=== PATIENT | male | born 1970 | race Caucasian/White ===

== ENCOUNTER 2019-01-04 18:30 | Emergency (ER) | payer OTHER ==
[~2019-01-04] VITALS: Ht 175.3 cm; Wt 83.9 kg
[~2019-01-04 18:30] MED LIST: ACETAMINOPHEN325 M1 PO; APAP500 PO; BENZTROPINE MESY2 MG PO; DEPAKOTE ER250 MG PO; DEPAKOTE ER500 MG PO; DETROL LA4 MG PO; GLUMETZA500 PO; HALOPERIDOL 5 MG5 MG PO; HYDROCHLOROTH12.5 MG PO; K-DUR 20 MEQ T20 MEQ PO; PRINIVIL20 MG PO; PROPRANOLOL 20M20 MG PO; REQUIP 0.25 M0.25 MG PO; RISPERDAL4 M1 PO; TOPIRAGEN200 MG PO; ZESTRIL20 MG PO
[2019-01-04] MEDS ORDERED: RISPERDAL37.5 MG/2 IM (18:55)
[2019-01-04] MEDS ORDERED: ATIVAN1 MG PO (18:56)
[2019-01-04] MEDS ORDERED: TEARS AGAIN15 ML OPHTHALMIC (18:57)
[2019-01-04] MEDS ORDERED: OXYBUTYNIN 5 MG5 M2 PO (18:58)
[2019-01-04] MEDS ORDERED: NORVASC5 MG PO (18:59)
[2019-01-04] MEDS ORDERED: COZAAR 25 MG TA25 M2 PO (18:59)
[2019-01-04 21:02] VITALS: BP 180/114
== END 2019-01-04 22:13 ==
LOC: ER 18:30
DX: S01.01XA Laceration without foreign body of scalp, initial encounter (principal); M25.511 Pain in right shoulder; M25.512 Pain in left shoulder; I10 Essential (primary) hypertension; E11.9 Type 2 diabetes mellitus without complications; Z79.899 Other long term (current) drug therapy; W01.198A Fall on same level from slipping, tripping and stumbling with subsequent striking against other object, initial encounter; Y93.89 Activity, other specified; Y92.89 Other specified places as the place of occurrence of the external cause; Y99.9 Unspecified external cause status

== ENCOUNTER 2021-06-21 11:34 | Inpatient (IN) | payer OTHER ==
[~2021-06-21] VITALS: Ht 175.3 cm; Wt 77.1 kg
--- NOTE | ~2021-06-21 | EMS ---
[facility] [address] [place] [address] EMS Patient Care Report Name: JAEL BOYCE Room #: 170-15 DIS IN M.R.#: [id number] Admission: 06/21/21 Attend Phys: Lambert Noland Discharge: 06/23/21 Date of : 66 Report #: [id number] THIS REPORT FOR: //name// Report Transmitted: 06/25/2021 09:46 EMS Care Summary [place], [place]/[facility] Incident [id number] @ 06/21/2021 11:08 Incident Location [id number] [place] [address] 314 Patient JAEL BOYCE Male, 50 Years 1970 Patient Address [address] [place] [address] Patient History Schizophrenia,Paranoid Schizophrenia, Chief Complaint AMS Disposition Transported Lights/[place] Dispatch Reason Sick Person Transported To [facility] Narrative RESPONDED TO SICK AT [facility]. UPON ARRIVAL PT FOUND LAYING SUPINE ON BED NOT ALERT OR ORIENTED TO BASELINE. LARGE POOL OF VOMIT NOTED ON FLOOR. PT ONLY WITHDREW TO STERNAL RUB AND NOT VOCAL OR EYE TRACKING.[place] STAFF REPORT PT WAS LAST SEEN NORMAL YESTERDAY AND NORMALLY TALKS. EMS OBTAINED VITALS AND PLACED PT ON NRB. PT ROLLED ONTO ROSE COMPLETIONS ENGINEER AND TEAM LIFTED TO COT WITH SEATBELTS APPLIED. EN ROUTE IV AND 3 LEAD OBTAINED. PT TRANSPORTED EMERGENCY WITH 1 FF TO [facility]. PT TEAM LIFTED TO BED AND HANDRAILS UP. REPORT GIVEN TO NURSE. [facility] [address] [place] [address] EMS Patient Care Report Name: JAEL BOYCE Room #: 170-15 DIS IN M.R.#: [id number] Admission: 06/21/21 Attend Phys: Lambert Noland Discharge: 06/23/21 Date of : 66 Report #: [id number] Initial Vitals @11:20P: 69,CO: 3,SpO2: 99, @11:30P: 71, @11:27P: 76,BP: 182/114,CO: 2,SpO2: 100, @11:31P: 70,R: 14,BP: 193/108,SpO2: 100, @11:20P: 73,R: 14,BP: 170/113,GCS: 6,Glucose: 111,SpO2: 98,Revised Trauma: 10, Assessments @11:20MENTAL:Unresponsive,Other,SKIN:Pale,HEENT:Eyes: Right Pupil: 5-mm,Neck/Airway: Other,Eyes: Left Pupil: 5-mm,LUNG SOUNDS:General: Vomiting,Left Upper: No Abnormalities,Right Upper: No Abnormalities,Left Lower: No Abnormalities,Right Lower: No Abnormalities,ABDOMEN:General: Vomiting,Left Upper: No Abnormalities,Right Upper: No Abnormalities,Left Lower: No Abnormalities,Right Lower: No Abnormalities,PELVIS//GI:Incontinence,EXTREMITIES:Left Arm: Weakness,Right Arm: Weakness,Left Leg: Weakness,Right Leg: Weakness,PULSE:Radial: 2+ Normal,NEURO:Other, Impression Altered Mental Status Procedures @11:20 ALS Assessment Response: UnchangedSucceeded @11:25 IV Therapy - Saline Lock 5cc (20 ga) Site: Antecubital-Left Response: UnchangedSucceeded @11:26 3-Lead ECG Response: UnchangedSucceeded @11:21 Oxygen FlowRate: 15 Device: Non Re-breather Mask (NRB) Response: UnchangedSucceeded Timeline 11:05,Call Received 11:05,Dispatch Notified 11:08,Dispatched 11:10,En Route 11:15,On Scene 11:20,At Patient 11:20,BP: / M,PULSE: 69,RR: R,SPO2: 99 Ox,ETCO2: ,BG: ,PAIN: ,GCS: , 11:20,BP: 170/113 M,PULSE: 73,RR: 14 R,SPO2: 98 Ox,ETCO2: ,B,PAIN: ,GCS: 6, 11:20,ALS Assessment,Response: UnchangedSucceeded, 11:21,Oxygen FlowRate: 15 Device: Non Re-breather Mask (NRB) Response: UnchangedSucceeded, 11:25,IV Therapy - Saline Lock 5cc 20 ga Site: Antecubital-Left,Response: UnchangedSucceeded, 11:26,3-Lead ECG,Response: UnchangedSucceeded, [address] [address] EMS Patient Care Report Name: JAEL BOYCE Room #: 170-15 [facility] IN M.R.#: [id number] Admission: 06/21/21 Attend Phys: Lambert Noland Discharge: 06/23/21 Date of : 66 Report #: [id number] 11:27,Depart Scene 11:27,BP: 182/114 M,PULSE: 76,RR: R,SPO2: 100 Ox,ETCO2: ,BG: ,PAIN: ,GCS: , 11:30,BP: / M,PULSE: 71,RR: R,SPO2: Ox,ETCO2: ,BG: ,PAIN: ,GCS: , 11:31,BP: 193/108 M,PULSE: 70,RR: 14 R,SPO2: 100 Ox,ETCO2: ,BG: ,PAIN: ,GCS: , 11:32,At Destination 11:47,Call Closed Disclaimer v1.1 Copyright 2021 [employer] This EMS Care Summary contains data elements from the applicable legal record (which may be displayed differently). It is designed to provide pertinent information for the following purposes: continuity of care, clinical quality, and state data reporting. The complete legal record is available to ED staff and administrators of the receiving hospital in [employer] Patient Tracker. All data is provided "as is."
[~2021-06-21 11:34] MED LIST changes: +ATIVAN1 MG PO; +COZAAR 25 MG TA25 M2 PO; +NORVASC5 MG PO; +OXYBUTYNIN 5 MG5 M2 PO; +RISPERDAL37.5 MG/2 IM; +TEARS AGAIN15 ML OPHTHALMIC
[2021-06-21 11:57] LABS: ABSOLUTE NEUTROPHILS 8.4 thou/uL (1.4-8.2); BASOPHILS 0.4 % (0.0-2.0); EOSINOPHILS 1.3 % (0.0-3.0); HEMATOCRIT 36.3 % (42.0-52.0); HEMOGLOBIN 12.5 gm/dL (14.0-18.0); LYMPHOCYTES 10.5 % (24.0-44.0); MCH 29.6 pg (26.0-34.0); MCHC 34.4 g/dL (28.0-37.0); MCV 86.1 fL (80.0-100.0); MONOCYTES 6.5 % (1.0-8.0); PLATELET COUNT 204 thou/uL (150-400); POLYS 81.3 % (36.0-66.0); RBC 4.21 mil/uL (4.50-6.00); RDW 13.7 % (10.5-14.5); WBC 10.3 thou/uL (4.0-11.0)
[2021-06-21 11:59] LABS: BE(vivo) -4.1 mmol/L (-2 to +3); HCO3 20.1 mmol/L (22.0-26.0); PCO2 34.2 mmHg (35.0-45.0); PO2 101.6 mmHg (80.0-100.0); pH 7.388 (7.360-7.450); sO2 97.6 % (92.0-98.0)
[2021-06-21 12:19] LABS: ALBUMIN 3.9 g/dL (3.4-5.0); CREATININE 0.4 mg/dL (0.7-1.3); MAGNESIUM 1.3 mg/dL (1.8-2.4); POTASSIUM 3.3 mmol/L (3.5-5.1); TOTAL BILIRUBIN 0.5 mg/dL (0.2-1.0); TOTAL PROTEIN 6.7 g/dL (6.4-8.2)
[2021-06-21 14:48] LABS: URINE BILIRUBIN NEGATIVE (Negative); URINE BLOOD NEGATIVE (Negative); URINE CLARITY SL CLOUDY; URINE COLOR YELLOW; URINE GLUCOSE-RANDOM* NEGATIVE (Negative); URINE KETONES TRACE (Negative); URINE LEUKOCYTES-REFLEX NEGATIVE (Negative); URINE NITRITE-REFLEX NEGATIVE (Negative); URINE PROTEIN (DIPSTICK) NEGATIVE (Negative); URINE SPECIFIC GRAVITY 1.015 (1.005-1.035); URINE UROBILINOGEN 0.2 E.U./dl (0.2-1.0)
[2021-06-21 14:55] LABS: AMP/METHAMP Negative (Negative); BARBITURATES Negative (Negative); BENZODIAZEPINES Negative (Negative); COCAINE Negative (Negative); METHADONE Negative (Negative); OPIATES Negative (Negative); PCP Negative (Negative)
[2021-06-21] MEDS ORDERED: ASPIRIN325 PO (16:36)
[2021-06-21] MEDS ORDERED: DESMOPRESSIN A0.2 M2 PO (16:37)
[2021-06-21 20:00] VITALS: BP 151/110
[2021-06-22] VITALS: BP 144/108
[2021-06-22 04:00] VITALS: BP 158/88
[2021-06-22 06:12] LABS: HEMATOCRIT 36.2 % (42.0-52.0); HEMOGLOBIN 12.3 gm/dL (14.0-18.0); MCH 29.3 pg (26.0-34.0); MCV 86.3 fL (80.0-100.0); RBC 4.19 mil/uL (4.50-6.00); RDW 14.1 % (10.5-14.5); WBC 9.3 thou/uL (4.0-11.0)
[2021-06-22 06:32] LABS: ALBUMIN 3.5 g/dL (3.4-5.0); CREATININE 0.4 mg/dL (0.7-1.3); MAGNESIUM 1.7 mg/dL (1.8-2.4); POTASSIUM 3.4 mmol/L (3.5-5.1); TOTAL BILIRUBIN 0.5 mg/dL (0.2-1.0); TOTAL PROTEIN 6.1 g/dL (6.4-8.2)
[2021-06-22 08:15] VITALS: BP 167/101
[2021-06-22 12:30] VITALS: BP 140/97
[2021-06-22 17:05] VITALS: BP 130/88
[2021-06-23 00:09] VITALS: BP 122/85
[2021-06-23 04:29] VITALS: BP 130/79
--- NOTE | 2021-06-23 05:26 | NUR ---
PT CONFUSED BUT MOSTLY PLEASANT. HE IS OFTEN IMPULSIVE WHEN AWAKE BUT ABLE TO BE RE-DIRECTED. NO C/O PAIN. AFEBRILE. VSS. GOOD PO INTAKE AND URINE OUTPUT. PT ONLY SLEPT A FEW HOURS DURING THE NIGHT. FALL PRECAUTIONS IN PLACE. WILL MONITOR FURTHER.
--- NOTE | 2021-06-23 07:37 | EKG ---
[place] [address] [id number] [place] [address] ELECTROCARDIOGRAM REPORT Name: JAEL BOYCE Room #: 170-15 ADM IN M.R.#: [id number] Admission: 06/21/21 Attend Phys: Lambert Noland Discharge: Date of : 66 Report #: [id number] [facility] ED Test Date: 2021-06-21 Test Time: 12:14:06 Pat Name: JAEL BOYCE Department: Room: 170 Gender: M Assembler: christian : 1970 Requested By: Deborah Mars Order Number: [id number] MD: Cecil Rushing Measurements Intervals [place] Rate: 72 P: 76 MN: 217 QRS: 63 QRSD: 97 T: 72 QT: 411 QTc: 450 Interpretive Statements Sinus rhythm Prolonged MN interval ST elev, probable normal early repol pattern Baseline wander in lead(s) V4,V5 Compared to ECG 04/17/2013 11:24:42 First degree AV block now present ST (T wave) deviation now present Electronically Signed On 06-23-2021 7:37:33 THREAD TWISTER by Cecil Rushing [email or web address] <ELECTRONICALLY SIGNED> By: Cecil Rushing MD, [facility] 06/23/21 0737 1214 1214 Cecil Rushing MD, [facility] /EPI
[2021-06-23 08:00] VITALS: BP 121/94
[2021-06-23 11:42] LABS: CALCIUM 8.4 mg/dL (8.5-10.1); CREATININE 0.5 mg/dL (0.7-1.3)
[2021-06-23 12:00] VITALS: BP 125/85; BP 128/85
[2021-06-23 12:13] VITALS: BP 128/85
--- NOTE | 2021-06-23 12:15 | NUR ---
RN RECEIVED CALL FROM CASE MANAGEMENT THAT PT'S GUARDIAN NEEDS TO BE CONSENTED FOR TREATMENT OF PATIENT. RN SENT MESSAGE TO DR. ARIZA REQUESTING THIS WITH PT'S LEGAL GUARDIAN'S NAME AND TELEPHONE NUMBER, RINA CAUSEY [phone]
--- NOTE | 2021-06-23 15:03 | NUR ---
RN RECEIVED CALL FROM DASIA, WITH SOCIAL WORK. PT DISCHARGING BACK TO [facility]. ETA OF RIDE [phone]
--- NOTE | 2021-06-23 16:18 | NUR ---
1618: RN CALLED REPORT TO MARYSE NURSE AT [facility].
--- NOTE | 2021-06-23 17:08 | NUR ---
1630: PT DISCHARGED AT THIS TIME VIA WHEELCHAIR BACK TO HOME AT [facility]. CUSTOMS HOUSE BROKER PROVIDED WITH DISCHARGE INSTRUCTIONS TO GIVE TO NURSE AT FACILITY. NURSE PREVIOUSLY CALLED AND GIVEN REPORT BY THIS RN.
== END 2021-06-23 16:40 | DRG 640 ==
LOC: ER 11:34 → EROBS 13:43
PROVIDERS: Emergency Medicine; ADMIT Hospitalist; ATTEND Hospitalist
DX: E87.1 Hypo-osmolality and hyponatremia (principal); G93.41 Metabolic encephalopathy; E46 Unspecified protein-calorie malnutrition; I10 Essential (primary) hypertension; I16.0 Hypertensive urgency; E11.9 Type 2 diabetes mellitus without complications; E83.42 Hypomagnesemia; F17.210 Nicotine dependence, cigarettes, uncomplicated; F29 Unspecified psychosis not due to a substance or known physiological condition; R41.0 Disorientation, unspecified; T43.025A Adverse effect of tetracyclic antidepressants, initial encounter; Z20.822 Contact with and (suspected) exposure to COVID-19; Y92.89 Other specified places as the place of occurrence of the external cause; Z68.25 Body mass index [BMI] 25.0-25.9, adult

== ENCOUNTER 2021-06-25 21:38 | Inpatient (IN) | payer OTHER ==
[~2021-06-25] VITALS: Ht 175.3 cm; Wt 77.1 kg
--- NOTE | ~2021-06-25 | EMS ---
[address] [address] EMS Patient Care Report Name: JAEL BOYCE Room #: 170-6 ADM IN M.R.#: [id number] Admission: 06/26/21 Attend Phys: Gaston Garcia MD Discharge: Date of : 66 Report #: [id number] THIS REPORT FOR: //name// Report Transmitted: 06/27/2021 11:14 EMS Care Summary [place], [place]/[facility] Incident [id number] @ 06/25/2021 20:58 Incident Location [id number] [place] [address] Patient JAEL BOYCE Male, 50 Years 1970 Patient Address [address] [place] [address] Patient History Schizophrenia,Paranoid Schizophrenia, Patient Allergies No known allergies, Patient Medications Propranolol, Ropinirole, Lorazepam, Desmopressin (DDAVP), Aspirin, Potassium, Amlodipine, Risperdal, Benztropine, Oxybutynin, Topiramate, Acetaminophen, Chief Complaint Altered Mental Status Disposition Transported No Lights/[place] Dispatch Reason Unconscious/Fainting Transported To [facility] Narrative Nurse at [facility] stated that Pt was found sitting in a wheelchair in hallway around 1900 hours and they could not wake Pt up to go to dinner and moved Pt back to his room. Nurse stated Pt was released from [facility] early today and they noticed when he had returned Pt was not alert as he [address] [place] [address] EMS Patient Care Report Name: JAEL BOYCE Room #: 170-6 ADM IN M.R.#: [id number] Admission: 06/26/21 Attend Phys: Gaston Garcia MD Discharge: Date of : 66 Report #: [id number] normally is and when Pt was found sitting in wheel chair and moved him to bed and waited to call 911 due to waiting for the Dr to return the Nurses call. Pt is a GCS 11 and not alert to answer questions. Pt laying in his bed half wain in /out with his feet on the floor in his room. Pt is a GCS 11 and would not follow commands or answer any questions when asked by EMS. Per Nurse Pt was released early today from [facility] for agitation and aggressive behavior and was lethargic when he returned to care center, and Nurse stated Pt had no changes in his Medication on return. Pt is with no signs of injury and no signs of ETOH use or drug use on further eval by EMS. Pt is with no other complaints noted and transported to [facility] and received by RN in ER. Initial Vitals @21:11P: 67,R: 20,BP: 103/67,Pain: 0/10,GCS: 11,Glucose: 118,SpO2: 98,Revised Trauma: 11, @21:15P: 71,R: 20,BP: 105/69,Pain: 0/10,GCS: 11,SpO2: 98,Revised Trauma: 11, Assessments @21:05MENTAL:Confused,SKIN:Pale,HEENT:Eyes: Left: Constricted,Eyes: Left Pupil: 3-mm,Eyes: Right Pupil: 5-mm,Eyes: Right: Other,Head/Face: No Abnormalities,Neck/Airway: No Abnormalities,LUNG SOUNDS:General: No Abnormalities,ABDOMEN:General: No Abnormalities,PELVIS//GI:No Abnormalities,EXTREMITIES:Capillary Refill: Left Upper: < 2 Sec,Left Arm: No Abnormalities,Right Arm: No Abnormalities,Left Leg: No Abnormalities,Right Leg: No Abnormalities,PULSE:Radial: 2+ Normal,NEURO:No Abnormalities,@21:23MENTAL:Confused,SKIN:Pale,HEENT:Eyes: Left: Constricted,Eyes: Left Pupil: 3-mm,Eyes: Right Pupil: 5-mm,Eyes: Right: Other,Head/Face: No Abnormalities,Neck/Airway: No Abnormalities,LUNG SOUNDS:General: No Abnormalities,ABDOMEN:General: No Abnormalities,PELVIS//GI:No Abnormalities,EXTREMITIES:Capillary Refill: Right Upper: < 2 Sec,Left Arm: No Abnormalities,Right Arm: No Abnormalities,Left Leg: No Abnormalities,Right Leg: No Abnormalities,PULSE:Radial: 2+ Normal,NEURO:No Abnormalities, Impression Altered Mental Status Procedures @21:05 ALS Assessment Response: UnchangedSucceeded @21:08 Oxygen FlowRate: 4 Device: OxyMask Response: UnchangedSucceeded @21:11 3-Lead ECG Response: UnchangedSucceeded @21:14 IV Therapy - Saline Lock 0cc (18 ga) Site: Antecubital-Left Response: UnchangedSucceeded [address] [address] EMS Patient Care Report Name: JAEL BOYCE Room #: 170-6 ADM IN M.R.#: [id number] Admission: 06/26/21 Attend Phys: Gaston Garcia MD Discharge: Date of : 66 Report #: [id number] Timeline 20:55,Call Received 20:55,Dispatch Notified 20:58,Dispatched 20:59,En Route 21:02,On Scene 21:05,At Patient 21:05,ALS Assessment,Response: UnchangedSucceeded, 21:08,Oxygen FlowRate: 4 Device: OxyMask Response: UnchangedSucceeded, 21:11,3-Lead ECG,Response: UnchangedSucceeded, 21:11,BP: 103/67 M,PULSE: 67,RR: 20 R,SPO2: 98 Ox,ETCO2: ,B,PAIN: 0,GCS: 11, 21:14,IV Therapy - Saline Lock 0cc 18 ga Site: Antecubital-Left,Response: UnchangedSucceeded, 21:15,BP: 105/69 M,PULSE: 71,RR: 20 R,SPO2: 98 Ox,ETCO2: ,BG: ,PAIN: 0,GCS: 11, 21:25,Depart Scene 21:33,At Destination 21:48,Call Closed Disclaimer v1.1 Copyright 2021 [employer] This EMS Care Summary contains data elements from the applicable legal record (which may be displayed differently). It is designed to provide pertinent information for the following purposes: continuity of care, clinical quality, and state data reporting. The complete legal record is available to ED staff and administrators of the receiving hospital in [employer]'s Patient Tracker. All data is provided "as is."
[~2021-06-25 21:38] MED LIST changes: +ASPIRIN325 PO; +DESMOPRESSIN A0.2 M2 PO
[2021-06-25 21:39] VITALS: BP 109/72
[2021-06-25 21:57] LABS: HEMATOCRIT 37.5 % (42.0-52.0); HEMOGLOBIN 12.7 gm/dL (14.0-18.0); MCH 29.3 pg (26.0-34.0); PLATELET COUNT 231 thou/uL (150-400); RBC 4.36 mil/uL (4.50-6.00); RDW 14.5 % (10.5-14.5); WBC 9.5 thou/uL (4.0-11.0)
[2021-06-25 22:19] LABS: ANION GAP 10 mmol/L (7-16); BUN 13 mg/dL (7-18); CALCIUM 8.8 mg/dL (8.5-10.1); CHLORIDE 86 mmol/L (98-107); CO2 19 mmol/L (21-32); CREATININE 1.1 mg/dL (0.7-1.3); GLUCOSE 117 mg/dL (74-106); LIPASE 91 U/L (73-393); POTASSIUM 3.4 mmol/L (3.5-5.1); SALICYLATE < 2.8 mg/dL (2.8-20.0)
[2021-06-25 22:23] LABS: SODIUM 115 mmol/L (136-145)
[2021-06-25 23:14] LABS: URINE BILIRUBIN NEGATIVE (Negative); URINE BLOOD NEGATIVE (Negative); URINE CLARITY SL CLOUDY; URINE COLOR YELLOW; URINE GLUCOSE-RANDOM* NEGATIVE (Negative); URINE KETONES NEGATIVE (Negative); URINE LEUKOCYTES-REFLEX NEGATIVE (Negative); URINE NITRITE-REFLEX NEGATIVE (Negative); URINE PROTEIN (DIPSTICK) NEGATIVE (Negative)
[2021-06-25 23:24] LABS: ABSOLUTE NEUTROPHILS 8.4 thou/uL (1.4-8.2)
[2021-06-25 23:24] LABS: AMP/METHAMP Negative (Negative); BARBITURATES Negative (Negative); BENZODIAZEPINES Negative (Negative); COCAINE Negative (Negative); METHADONE Negative (Negative); OPIATES Negative (Negative); PCP Negative (Negative)
[2021-06-25 23:25] LABS: ANISOCYTOSIS 1+; BURR CELLS 1+; LARGE PLATELETS FEW; PLATELET ESTIMATE NORMAL; POIKILOCYTOSIS 1+
[2021-06-26 06:48] LABS: HEMATOCRIT 37.1 % (42.0-52.0); HEMOGLOBIN 12.2 gm/dL (14.0-18.0); MCH 29.3 pg (26.0-34.0); MCHC 32.8 g/dL (28.0-37.0); MCV 89.4 fL (80.0-100.0); RBC 4.15 mil/uL (4.50-6.00); RDW 14.3 % (10.5-14.5); WBC 10.3 thou/uL (4.0-11.0)
[2021-06-26 08:00] LABS: URINE CREATININE-RANDOM* 89.2 mg/dL
--- NOTE | 2021-06-26 08:44 | EKG ---
[place] [address] [facility] [place] [address] ELECTROCARDIOGRAM REPORT Name: JAEL BOYCE Room #: 170-6 ADM IN M.R.#: [id number] Admission: 06/26/21 Attend Phys: Gaston Garcia MD Discharge: Date of : 66 Report #: [id number] [facility] ED Test Date: 2021-06-25 Test Time: 22:02:01 Pat Name: JAEL BOYCE Department: Room: 170 Gender: M Digital Research Analyst: : 1970 Requested By: Gregorio Verma Order Number: [id number] MD: Cecil Rushing Measurements Intervals [place] Rate: 74 P: 74 PA: 221 QRS: 64 QRSD: 89 T: 86 QT: 404 QTc: 449 Interpretive Statements Sinus rhythm Atrial premature complexes Prolonged PA interval Abnormal R-wave progression, early transition Minimal ST elevation, inferior leads Compared to ECG 06/21/2021 12:14:06 Atrial premature complex(es) now present ST (T wave) deviation still present Electronically Signed On 06-26-2021 8:44:44 DIE PRESSER by Cecil Rushing [email or web address] <ELECTRONICALLY SIGNED> By: eCcil Rushing MD, FACC 06/26/21 0844 01 01 Cecil Rushing MD, FAC /EPI
--- NOTE | 2021-06-26 09:04 | NUR ---
Received patient report from TERESO Rosales. Assuming patient care at this time.
[2021-06-26 09:44] VITALS: BP 140/85
--- NOTE | 2021-06-26 13:57 | NUR ---
Pt assisted to bedside commode, had bowel movement. Pt moved from bed to commode with minimal assistance, steady gait. No complications
[2021-06-26 14:10] LABS: ALBUMIN 3.5 g/dL (3.4-5.0); CALCIUM 8.2 mg/dL (8.5-10.1); CREATININE 0.7 mg/dL (0.7-1.3); PHOSPHORUS 3.4 mg/dL (2.5-4.9); POTASSIUM 3.8 mmol/L (3.5-5.1)
--- NOTE | 2021-06-26 15:59 | NUR ---
PT ADMITTED RELATED TO HYPONATREMIA. CM REVIEWED CHART AND SPOKE WITH ARE TEAM. PT IS FAMILIAR TO CM FROM PREVIOUS ADMISSION. PT IS RESIDENT OF [facility]. PT HAD DISCHARGED BACK TO [facility] Wednesday06/23/20. CM HAD ARRANGED [facility] FOR [id number]. PT IS [facility] OFFICE LEGAL GUARDIAN IS RINA [facility] . CM SPOKE WITH HIM. HE HAD SPOKEN WITH STAFF HERE THIS AM AND HAD PROVIDED THEM CONSENT TO TREAT. PT IS COVID POSITIVE THIS ADMISSION IS ON ROOM AIR. NEPHROLOGY CONSULTED. PLAN WOULD BE FOR PT TO RETURN TO [facility] ONCE MEDICALLY STABLE. RINA INDICATED THAT PT MAY HAVE DISCHARGED BACK LAST TIME WITHOUT HIS SHOES. CM TO INQUIRE. CM FOLLOWING.
--- NOTE | 2021-06-26 18:54 | NUR ---
Pt pulled out IV, cardiac leads, bedding on floor. Pt cleaned up, bedding changed, new IV established. IV site wrapped for security.
--- NOTE | 2021-06-26 19:08 | NUR ---
Pt report given to TERESO Willingham
--- NOTE | 2021-06-26 19:50 | NUR ---
PT REMOVED CORDS AND DISCONNECTED IV FLUIDS AT THIS TIME. PT'S IV STILL IN PLACE AND IS PATENT. PT REORIENTED TO SITUATION AND ENCOURAGED TO USE CALL LIGHT IF ASSSISTANCE IS NEEDED IN THE FUTURE.
--- NOTE | 2021-06-26 20:15 | NUR ---
PT FOR A REPEATED TIME HAS RIPPED ALL OF HIS CORDS OFF AND HAS GOTTEN OUT OF BED IN ORDER TO GET WATER. PT EDUCATED ABOUT USING THE CALL LIGHT. PT STATES HE DIDN'T USE THE CALL LIGHT BECAUSE "I FORGOT".
[2021-06-27 04:10] LABS: HEMATOCRIT 37.4 % (42.0-52.0); HEMOGLOBIN 12.8 gm/dL (14.0-18.0); MCH 29.8 pg (26.0-34.0); MCHC 34.1 g/dL (28.0-37.0); MCV 87.5 fL (80.0-100.0); RBC 4.28 mil/uL (4.50-6.00); RDW 14.2 % (10.5-14.5)
[2021-06-27 09:22] VITALS: BP 181/96
[2021-06-27 09:25] LABS: ALBUMIN 3.6 g/dL (3.4-5.0); CALCIUM 8.4 mg/dL (8.5-10.1); CREATININE 0.6 mg/dL (0.7-1.3); PHOSPHORUS 2.8 mg/dL (2.6-4.7); POTASSIUM 3.9 mmol/L (3.5-5.1)
[2021-06-27 13:38] VITALS: BP 118/82
--- NOTE | 2021-06-27 14:24 | NUR ---
SPOKE WITH ANIKA FROM [facility] WHO STATES THEY WILL PICK PATIENT UP AROUND 3 TO TAKE HIM BACK TO THE FACILITY
--- NOTE | 2021-06-27 15:59 | NUR ---
CARE TEAM INDICATED THAT PT IS MEDICALLY STABLE TO DC BACK TO [facility] THIS DAY. CM SPOKE WITH BIANKA HANNA AND SHE IS AWARE AND AGREEABLE. THEY ARE ABLE TO ACCEPT HIM WITH HIS COVID POSITIVE STATUS. THEY INDICATED THAT [facility] PICKING PT UP AROUND 1800 WITH THEIR TRANSPORT. CM NOTIFIED UNIT. CHART COPY ORDERED. ORDERS FAXED. CM CALLED AND NOTIFIED PT'S GUARDIAN RINA CAUSEY AND HE IS AWARE AND AGREEABLE. NURSE GIVEN NUMBER FOR REPORT. NO OTHER CM INTERVENTION INDICATED. CASE CLOSED.
--- NOTE | 2021-06-27 16:07 | NUR ---
[facility] CALLED BACK TO SAY THEY WOULD ARRIVE AT 1800
== END 2021-06-27 16:55 | DRG 640 ==
LOC: ER 21:38 → EROBS 06-26 01:11
PROVIDERS: Internal Medicine Nephrology; Nurse Practitioner Family; Student in an Organized Health Care Education/Training Program; ADMIT Hospitalist; ATTEND Hospitalist
DX: E87.1 Hypo-osmolality and hyponatremia (principal); J96.01 Acute respiratory failure with hypoxia; U07.1 COVID-19; F20.0 Paranoid schizophrenia; G93.40 Encephalopathy, unspecified; E86.1 Hypovolemia; I10 Essential (primary) hypertension; E11.9 Type 2 diabetes mellitus without complications; F60.9 Personality disorder, unspecified; T50.905A Adverse effect of unspecified drugs, medicaments and biological substances, initial encounter; Y92.89 Other specified places as the place of occurrence of the external cause; Z86.16 Personal history of COVID-19

== ENCOUNTER 2021-07-26 21:35 | Inpatient (IN) | payer OTHER ==
[~2021-07-26] VITALS: Ht 175.3 cm; Wt 70.1 kg
--- NOTE | ~2021-07-26 | EMS ---
[address] [address] EMS Patient Care Report Name: JAEL BOYCE Room #: REG MIS Guevara#: [id number] Admission: 07/26/21 Attend Phys: Discharge: Date of : 66 Report #: [id number] THIS REPORT FOR: //name// Report Transmitted: 07/26/2021 22:12 EMS Care Summary [place], [place]/[facility] Incident [id number] @ 07/26/2021 21:05 Incident Location [address] [facility] Patient JAEL BOYCE Male, 50 Years 1970 Patient Address [address] [place], [place] [id number] Patient History Diabetes,Hypertension (HTN),Schizophrenia,Paranoid Schizophrenia, Patient Allergies No known allergies, Patient Medications Topiramate, Risperdal, Propranolol, Oxybutynin, Aspirin, Potassium, Acetaminophen, Desmopressin (DDAVP), Ropinirole, Amlodipine, Benztropine, Lorazepam, Chief Complaint altered LOC Disposition Transported No Lights/[place] Dispatch Reason Sick Person Transported To [facility] Narrative pt found seated on couch in [facility]. staff states pt normally is alert, confused, ambulatory. since yesterday he is unable to ambulate w/o assist and [address] [address] EMS Patient Care Report Name: JAEL BOYCE Room #: REG MIS Guevara#: [id number] Admission: 07/26/21 Attend Phys: Discharge: Date of : 66 Report #: [id number] has slurred, confused responses. they ordered lab work but does not want to wait to get results back. pt assist to cot, tx as listed in flow chart. transport w/o change. report to staff rm 10 Initial Vitals @21:16P: 75,R: 18,BP: 115/70,Pain: 0/10,GCS: 14,Glucose: 110,SpO2: 99,Revised Trauma: 12, Assessments @21:12MENTAL:Confused,Person Oriented,SKIN:No Abnormalities,HEENT:Head/Face: No Abnormalities,LUNG SOUNDS:ABDOMEN:PELVIS//GI:EXTREMITIES:PULSE:NEURO:Slurred Speech,Other, Impression Altered Mental Status Procedures @21:12 ALS Assessment Response: Unchanged @21:14 Stretcher Response: Unchanged @21:16 3-Lead ECG Response: Unchanged @21:20 IV Therapy - Saline Lock 10cc (20 ga) Site: Hand-Left Response: UnchangedSucceeded Timeline 21:03,Call Received 21:03,Dispatch Notified 21:05,Dispatched 21:05,En Route 21:11,On Scene 21:12,At Patient 21:12,ALS Assessment,Response: Unchanged 21:14,Stretcher,Response: Unchanged 21:16,3-Lead ECG,Response: Unchanged 21:16,BP: 115/70 M,PULSE: 75,RR: 18 R,SPO2: 99 Ox,ETCO2: ,B,PAIN: 0,GCS: 14, 21:20,IV Therapy - Saline Lock 10cc 20 ga Site: Hand-Left,Response: UnchangedSucceeded, 21:23,Depart Scene 21:30,At Destination 21:41,Call Closed Disclaimer v1.1 Copyright 2021 [employer] This EMS Care Summary contains data elements from the applicable legal record (which may be displayed differently). It is designed to provide pertinent [facility] [address] [place] [address] EMS Patient Care Report Name: JAEL BOYCE [id number] Admission: 07/26/21 Attend Phys: Discharge: Date of : 66 Report #: [id number] information for the following purposes: continuity of care, clinical quality, and state data reporting. The complete legal record is available to ED staff and administrators of the receiving hospital in [employer]'s Patient Tracker. All data is provided "as is."
[2021-07-26 21:36] VITALS: BP 115/74
[2021-07-26 23:00] LABS: HEMATOCRIT 29.5 % (42.0-52.0); HEMOGLOBIN 10.3 gm/dL (14.0-18.0); MCH 29.2 pg (26.0-34.0); MCHC 34.9 g/dL (28.0-37.0); MCV 83.8 fL (80.0-100.0); RBC 3.52 mil/uL (4.50-6.00); RDW 14.5 % (10.5-14.5); WBC 16.5 thou/uL (4.0-11.0)
[2021-07-26 23:09] LABS: ANION GAP 10 mmol/L (7-16); BUN 15 mg/dL (7-18); CALCIUM 8.6 mg/dL (8.5-10.1); CHLORIDE 89 mmol/L (98-107); CO2 20 mmol/L (21-32); CREATININE 0.5 mg/dL (0.7-1.3); GLUCOSE 99 mg/dL (74-106); POTASSIUM 4.1 mmol/L (3.5-5.1)
[2021-07-26 23:18] LABS: MAGNESIUM 1.7 mg/dL (1.8-2.4); PHOSPHORUS 2.5 mg/dL (2.6-4.7); SALICYLATE < 2.8 mg/dL (2.8-20.0); SGOT 44 U/L (15-37); SGPT 44 U/L (16-63); TOTAL BILIRUBIN 0.5 mg/dL (0.2-1.0); TOTAL PROTEIN 5.6 g/dL (6.4-8.2)
[2021-07-26 23:25] LABS: SODIUM 119 mmol/L (136-145)
[2021-07-26 23:53] LABS: URINE BILIRUBIN NEGATIVE (Negative); URINE BLOOD 1+ (Negative); URINE CLARITY CLOUDY; URINE COLOR YELLOW; URINE GLUCOSE-RANDOM* NEGATIVE (Negative); URINE KETONES NEGATIVE (Negative); URINE NITRITE-REFLEX NEGATIVE (Negative); URINE PROTEIN (DIPSTICK) TRACE (Negative)
[2021-07-26 23:57] LABS: URINE LEUKOCYTES-REFLEX 3+ (Negative)
[2021-07-26] MEDS ORDERED: ADVIL200 M1 PO (23:59)
[2021-07-27] VITALS (8 sets, daily range): BP systolic 114–150; BP diastolic 74–103
[2021-07-27 00:01] LABS: AMP/METHAMP Negative (Negative); BARBITURATES Negative (Negative); BENZODIAZEPINES Negative (Negative); COCAINE Negative (Negative); METHADONE Negative (Negative); OPIATES Negative (Negative); PCP Negative (Negative)
[2021-07-27 00:33] LABS: CASTS None Seen /LPF (None Seen); MUCUS 4-6 Moderate strn/LPF (None Seen); SQUAMOUS 0-3 Few /LPF (0-3); URINE RBC 3-10 Few /HPF (NONE SEEN); URINE WBC-REFLEX >25 Many /HPF (0-5); WBC CLUMPS Packed (None Seen)
[2021-07-27 00:34] LABS: CRYSTALS None Seen /LPF (None Seen)
[2021-07-27 05:22] LABS: HEMATOCRIT 30.4 % (42.0-52.0); HEMOGLOBIN 10.6 gm/dL (14.0-18.0); MCH 29.3 pg (26.0-34.0); MCHC 34.8 g/dL (28.0-37.0); MCV 84.1 fL (80.0-100.0); RBC 3.61 mil/uL (4.50-6.00); RDW 14.7 % (10.5-14.5); WBC 14.6 thou/uL (4.0-11.0)
[2021-07-27 06:09] LABS: CALCIUM 8.4 mg/dL (8.5-10.1); CREATININE 0.6 mg/dL (0.7-1.3); POTASSIUM 3.3 mmol/L (3.5-5.1)
--- NOTE | 2021-07-27 09:39 | NUR ---
ASSUMED CARE OF PATIENT THIS MORNING. PATIENT HAS BEEN SLEEPING THROUGHOUT THE MORNING AND IS MINIMALLY INTERACTIVE WITH STAFF. PT REFUSING TO ANSWER QUESTIONS AT THIS TIME AND UNABLE TO COMPLETE ADMISSION DOCUMENTATION REQUIREMENTS.
--- NOTE | 2021-07-27 11:12 | EKG ---
[place] [address] [facility] [place] [address] ELECTROCARDIOGRAM REPORT Name: JAEL BOYCE Room #: 216-P ADM IN M.R.#: [id number] Admission: 07/27/21 Attend Phys: George Del Toro MD Discharge: Date of : 66 Report #: [id number] [facility] ED Test Date: 2021-07-26 Test Time: 23:07:59 Pat Name: JAEL BOYCE Department: Room: 216 Gender: M Colorer Machine: CINDY : 1970 Requested By: Pete Culver Order Number: [id number] MD: Brady Walton Measurements Intervals [place] Rate: 76 P: 49 FL: 212 QRS: 46 QRSD: 95 T: 66 QT: 426 QTc: 480 Interpretive Statements Sinus rhythm Prolonged [place] interval Minimal repolarization abnormality Baseline wander in lead(s) V5 Compared to ECG 06/25/2021 22:02:01 Atrial premature complex(es) no longer present Electronically Signed On 07-27-2021 11:11:57 COOK APPRENTICE by Brady Walton [email or web address] <ELECTRONICALLY SIGNED> By: Brady Walton MD, [facility] [id number] 06 06 Brady Walton MD, [facility] /EPI
[2021-07-28 03:50] VITALS: BP 151/103
[2021-07-28 04:57] LABS: ALBUMIN 3.1 g/dL (3.4-5.0); CALCIUM 8.6 mg/dL (8.5-10.1); CREATININE 0.4 mg/dL (0.7-1.3); PHOSPHORUS 4.3 mg/dL (2.5-4.9); POTASSIUM 3.4 mmol/L (3.5-5.1)
--- NOTE | 2021-07-28 07:32 | NUR ---
ASSESSMENTS CHARTED, MEDS CHARTED GIVEN. PATIENT IMPULSIVE IN ROOM. NON-COMPLIANT WITH USING THE CALL LIGHT, ALLOWING ASSISTANCE WITH BATHROOMING. PATIENT NON-COMPLIANT WITH WATER RESTRICTIONS. WOULD GO IN THE BATHROOM AND DRINK FROM THE SINK. UNWILLING TO LEARN OR FOLLOW DIRECTIONS. SINUS TACH AT START OF SHIFT. BACK TO BASELINE. CONTINUE WITH CARES.
[2021-07-28 07:55] VITALS: BP 154/80
--- NOTE | 2021-07-28 12:22 | NUR ---
PATIENT ADMITTED FOR HYPONATREMIA. CHART REVIEWED AND DISCUSSED WITH CARE TEAM. CM MET WITH PT THIS DAY ALTHOUGH PT IN BATHROOM WITH NURSING STAFF. CM HAS PUBLIC CHIEF SERVICE DISPATCHER RINA CAUSEY WITH [facility] OFFICE. [phone]. CM NOTIFIED CHIEF SERVICE DISPATCHER OF ADMIT. PT IS A RESIDENT OF [facility]. PLAN IF TO RETURN TO [facility] ONCE MEDICALLY STABLE TO DISCHARGE. CM FOLLOWING FOR DC PLANNING.
[2021-07-28 12:28] VITALS: BP 135/73
[2021-07-28 16:55] VITALS: BP 177/114
[2021-07-28 19:55] VITALS: BP 168/121
[2021-07-29 04:40] VITALS: BP 152/109
[2021-07-29 04:45] LABS: ALBUMIN 2.8 g/dL (3.4-5.0); CALCIUM 8.9 mg/dL (8.5-10.1); CREATININE 0.5 mg/dL (0.7-1.3); PHOSPHORUS 4.5 mg/dL (2.6-4.7); POTASSIUM 3.8 mmol/L (3.5-5.1)
[2021-07-29 08:00] VITALS: BP 164/103
[2021-07-29 11:30] VITALS: BP 137/97
[2021-07-29] MEDS ORDERED: SODIUM CHLORI1000 MG PO (12:12)
--- NOTE | 2021-07-29 14:21 | NUR ---
PT MEDICALLY STABLE TO DC THIS DAY. CM SPOKE TO [facility] JUWAN VALERO AND ABLE TO ACCEPT PT BACK THIS DAY. CM ARRANGED TRANSPORT THROUGH [employer] FOR W/C VAN BETWEEN 400-430P. CM CALLED PUBLIC TIMBER SIZER OPERATOR RINA AND HE IS AWARE. CHART COPIED. DC ORDERS AND SUMMARY FAXED TO [facility]. NO FURTHER CM INTERVENTIONS INDICATED.
[2021-07-29 15:45] VITALS: BP 185/131
[2021-07-29 16:16] VITALS: BP 180/111
== END 2021-07-29 17:45 | DRG 871 ==
LOC: ER 21:35 → 2N 07-27 01:48 → EROBS 07-27 01:48 → 2N 07-27 05:57
PROVIDERS: Emergency Medicine; Hospitalist; Nurse Practitioner Family; ADMIT Hospitalist; ATTEND Hospitalist
DX: A41.9 Sepsis, unspecified organism (principal); G93.41 Metabolic encephalopathy; E87.1 Hypo-osmolality and hyponatremia; N39.0 Urinary tract infection, site not specified; F20.0 Paranoid schizophrenia; R63.1 Polydipsia; Z20.822 Contact with and (suspected) exposure to COVID-19; I10 Essential (primary) hypertension
CPT/HCPCS: 10081